=== PATIENT | female | born 2000 | race African-American/Black ===

== ENCOUNTER 2020-03-11 02:15 | Observation (INO) | payer MEDICAID, OTHER ==
[~2020-03-11] VITALS: Ht 172.7 cm; Wt 103.2 kg
[2020-03-11 02:35] VITALS: BP 128/71
[2020-03-11] MEDS ORDERED: GUAIFENESIN 100 MG/5 ML, 5ML UDC PO STA (03:10)
[2020-03-11 03:17] LABS: AMPHETAMINE SCREEN, URINE Negative (Negative); BARBITURATE SCREEN, URINE Negative (Negative); BENZODIAZEPINE SCREEN, URINE Negative (Negative); CANNABINOID SCREEN, URINE Positive (Negative); COCAINE SCREEN, URINE Negative (Negative); METHADONE SCREEN, URINE Negative (Negative); OPIATE SCREEN, URINE Negative (Negative)
[2020-03-11 03:27] LABS: MICROSCOPIC INDICATED
[2020-03-11] MEDS ORDERED: ONDANSETRON 2MG/ML, 2ML ONE (03:58)
[2020-03-11] MEDS ORDERED: LACTATED RINGERS 1,000 ML IV SCH (04:00)
[2020-03-11] MEDS ORDERED: ONDANSETRON 2MG/ML, 2ML IVPush PRN (04:00)
[2020-03-11] MEDS ORDERED: CALCIUM CARBONATE 500 MG TAB.CHEW ONE (07:29)
[2020-03-11] MEDS ORDERED: D5%-LACTATED RINGERS 1,000 ML IV SCH ×2 (07:30)
== END 2020-03-11 07:59 | disposition home or self-care (01) ==
LOC: LDOP 02:15 → LDIP 03:46
PROVIDERS: ADMIT Obstetrics & Gynecology; ATTEND Obstetrics & Gynecology
DX: O21.2 Late vomiting of pregnancy (principal); Z20.822 Contact with and (suspected) exposure to COVID-19; O62.9 Abnormality of forces of labor, unspecified; O99.323 Drug use complicating pregnancy, third trimester; F12.10 Cannabis abuse, uncomplicated; Z3A.31 31 weeks gestation of pregnancy; Z87.891 Personal history of nicotine dependence; Z79.899 Other long term (current) drug therapy
CPT/HCPCS: 59025; 80307; 81001; 87086; 87635; 96361; 96374; G0378; J2405; J7120; J7121; 96360

== ENCOUNTER 2020-04-20 10:02 | Inpatient (IN) | payer MEDICAID ==
[~2020-04-20] VITALS: Ht 172.7 cm; Wt 104.5 kg
[2020-04-20] MEDS: OXYTOCIN 30U/ 0.9% NaCL 500ML 500 ML IV SCH (01:00)
[2020-04-20] MEDS: LACTATED RINGERS 1,000 ML IV SCH ×4 (01:00→19:45)
[2020-04-20 10:12] VITALS: BP 116/68
[2020-04-20 10:57] LABS: AMPHETAMINE SCREEN, URINE Negative (Negative); BARBITURATE SCREEN, URINE Negative (Negative); BENZODIAZEPINE SCREEN, URINE Negative (Negative); CANNABINOID SCREEN, URINE Positive (Negative); COCAINE SCREEN, URINE Negative (Negative); METHADONE SCREEN, URINE Negative (Negative); OPIATE SCREEN, URINE Negative (Negative)
[2020-04-20 10:57] LABS: MICROSCOPIC INDICATED
[2020-04-20] MEDS ORDERED: FENTANYL PF 100 MCG/2ML IV PRN (11:00)
[2020-04-20] MEDS ORDERED: TERBUTALINE 1 MG/ML, 1ML IVPush PRN (11:00)
[2020-04-20] MEDS ORDERED: OXYTOCIN 30U/ 0.9% NaCL 500ML 500 ML IV ONE (11:00)
[2020-04-20] MEDS ORDERED: TERBUTALINE 1 MG/ML, 1ML SQ PRN (11:00)
[2020-04-20] MEDS ORDERED: OXYTOCIN 30U/ 0.9% NaCL 500ML 500 ML ONE ×2 (11:05→22:45)
[2020-04-20] MEDS ORDERED: LIDOCAINE 1%, 20ML ONE (11:05)
[2020-04-20] MEDS ORDERED: MISOPROSTOL 200 MCG TABLET ONE (11:05)
[2020-04-20] MEDS ORDERED: NEWBORN KIT ONE (11:05)
[2020-04-20] MEDS ORDERED: PREN1TAB60 PO (11:40)
[2020-04-20 12:15] LABS: BASOPHILS % (AUTO) 0 % (0-1); EOSINOPHILS % (AUTO) 0 % (1-7); LYMPHOCYTES % (AUTO) 22 % (22-44); MEAN CORPUSCULAR HEMOGLOBIN 26.4 pg (27.0-34.8); MEAN CORPUSCULAR HGB CONC 34.1 g/dL (32.4-35.8); MONOCYTES % (AUTO) 6 % (2-9); NEUTROPHILS % (AUTO) 72 % (42-75); PLATELET COUNT 244 x10^3/uL (130-400); RED BLOOD COUNT 4.08 x10^6/uL (3.82-5.3)
[2020-04-20 12:19] LABS: MD NO
[2020-04-20] MEDS: LACTATED RINGERS 1,000 ML IVBOLUS PRN ×2 (17:10→17:46)
[2020-04-20] MEDS ORDERED: EPHEDRINE 50 MG/ML, 1ML IVPush PRN ×2 (18:00→21:00)
[2020-04-20] MEDS ORDERED: FENTANYL/BUPIV./NS/PF 250 ML EPIDCONT SCH ×2 (18:00→21:00)
[2020-04-20] MEDS ORDERED: FENTANYL PF 100 MCG/2ML ONE ×2 (18:00→19:37)
[2020-04-20] MEDS: FENTANYL PF 100 MCG/2ML IVPush PRN ×2 (18:04→19:44)
[2020-04-20] MEDS ORDERED: OXYTOCIN 30U/ 0.9% NaCL 500ML 500 ML IV PRN (18:30)
[2020-04-20] MEDS ORDERED: FENTANYL/BUPIV./NS/PF 250 ML EPIDCONT ONE (20:07)
[2020-04-20] MEDS ORDERED: LACTATED RINGERS 1,000 ML IVBOLUS PRN (21:00)
[2020-04-20] MEDS ORDERED: NALOXONE 0.4 MG/ML, 1ML IVPush PRN (21:00)
[2020-04-20] MEDS ORDERED: METOCLOPRAMIDE 5 MG/ML, 2ML ONE (21:09)
[2020-04-20] MEDS ORDERED: SODIUM CITRATE/CITRIC ACID 15 ML UDC ONE (21:10)
[2020-04-20] MEDS ORDERED: SIMETHICONE 80 MG CHEW TAB PO PRN ×2 (22:30)
[2020-04-20] MEDS ORDERED: OXYTOCIN 30U/ 0.9% NaCL 500ML 500 ML IV SCH (22:30)
[2020-04-20] MEDS ORDERED: DOCUSATE 100 MG CAPSULE PO PRN ×2 (22:30)
[2020-04-21 01:09] VITALS: BP 112/78
[2020-04-21 04:40] VITALS: BP 127/79
[2020-04-21] MEDS: LACTATED RINGERS 1,000 ML IV SCH ×3 (05:00→21:00)
[2020-04-21 06:24] LABS: BASOPHILS % (AUTO) 1 % (0-1); EOSINOPHILS % (AUTO) 0 % (1-7); LYMPHOCYTES % (AUTO) 17 % (22-44); MD NO; MEAN CORPUSCULAR HGB CONC 33.8 g/dL (32.4-35.8); MEAN PLATELET VOLUME 8.3 fL (7.4-10.4); MONOCYTES % (AUTO) 7 % (2-9); NEUTROPHILS % (AUTO) 75 % (42-75); PLATELET COUNT 214 x10^3/uL (130-400); RED BLOOD COUNT 3.48 x10^6/uL (3.82-5.3); RED CELL DISTRIBUTION WIDTH 15.1 % (9.6-15.2)
[2020-04-21 07:05] VITALS: BP 112/76
[2020-04-21] MEDS ORDERED: IBUPROFEN 600 MG TABLET ONE (07:52)
[2020-04-21] MEDS: NITROFURANTOIN (MACROBID) 100 MG CAPSULE PO SCH ×2 (07:54→21:10)
[2020-04-21] MEDS: IBUPROFEN 200 MG TABLET PO SCH ×2 (08:00→14:00)
[2020-04-21] MEDS ORDERED: OXYcodone/APAP 5/325MG TABLET PO PRN (08:30)
[2020-04-21] MEDS ORDERED: ACETAMINOPHEN 325 MG TABLET PO PRN (08:30)
[2020-04-21] MEDS: OXYTOCIN 30U/ 0.9% NaCL 500ML 500 ML IV SCH ×2 (08:30→18:30)
[2020-04-21] MEDS ORDERED: PRENATAL VIT/IRON/FA 1 EACH TABLET PO SCH ×2 (09:00)
[2020-04-21] MEDS ORDERED: CALCIUM CARBONATE 500 MG TAB.CHEW PO SCH (16:30)
[2020-04-21] MEDS ORDERED: IBUPROFEN 200 MG TABLET PO PRN (19:30)
[2020-04-21] MEDS ORDERED: IBUPROFEN 600 MG TABLET PO PRN (19:30)
[2020-04-21 20:00] VITALS: BP 119/82
[2020-04-21] MEDS ORDERED: CALCIUM CARBONATE 500 MG TAB.CHEW PO PRN (21:30)
[2020-04-22] MEDS: OXYTOCIN 30U/ 0.9% NaCL 500ML 500 ML IV SCH (04:22)
[2020-04-22] MEDS: LACTATED RINGERS 1,000 ML IV SCH (04:22)
[2020-04-22 08:00] VITALS: BP 109/76
[2020-04-22] MEDS ORDERED: IBUP-1222 PO (09:56)
[2020-04-23] MEDS ORDERED: OXYTOCIN 30U/ 0.9% NaCL 500ML 500 ML IV SCH (11:00)
== END 2020-04-22 12:40 | disposition home or self-care (01) | DRG 807 ==
LOC: LDOP 10:02 → LDIP 10:53 → 2NW 04-21 00:46
PROVIDERS: ADMIT Obstetrics & Gynecology; ATTEND Obstetrics & Gynecology
PROC: 10E0XZZ Delivery of Products of Conception, External Approach (ICD-10-PCS; principal; 2020-04-20)
PROC: 0HQ9XZZ Repair Perineum Skin, External Approach (ICD-10-PCS; 2020-04-20)
PROC: 10907ZC Drainage of Amniotic Fluid, Therapeutic from Products of Conception, Via Natural or Artificial Opening (ICD-10-PCS; 2020-04-20)
PROC: 10H07YZ Insertion of Other Device into Products of Conception, Via Natural or Artificial Opening (ICD-10-PCS; 2020-04-20)
PROC: 3E0R3BZ Introduction of Anesthetic Agent into Spinal Canal, Percutaneous Approach (ICD-10-PCS; 2020-04-20)
PROC: 00HU33Z Insertion of Infusion Device into Spinal Canal, Percutaneous Approach (ICD-10-PCS; 2020-04-20)
DX: O60.14X0 Preterm labor third trimester with preterm delivery third trimester, not applicable or unspecified (principal); Z37.0 Single live birth; Z3A.36 36 weeks gestation of pregnancy; O70.0 First degree perineal laceration during delivery; O76 Abnormality in fetal heart rate and rhythm complicating labor and delivery; O32.6XX0 Maternal care for compound presentation, not applicable or unspecified; Z20.822 Contact with and (suspected) exposure to COVID-19
CPT/HCPCS: 36415; 80307; 81001; 85025; 86592; 86850; 86900; 87086; 87635; G0378; J3010; J2590; J7120